=== PATIENT | male | born 1970 ===

== ENCOUNTER 2020-06-27 14:51 | Outpatient (REF) | payer BC, SELFPAY ==
[2020-07-01 10:07] LABS: COVID-19 RT-PCR Result NEGATIVE (Negative)
== END 2020-06-27 15:11 ==
LOC: NCHCN 14:51
PROVIDERS: PCP Internal Medicine; Visit Provider Internal Medicine
DX: Z20.828 Contact with and (suspected) exposure to other viral communicable diseases (principal)
CPT/HCPCS: U0003